=== PATIENT | male | born 2000 | race African-American/Black ===

== ENCOUNTER 2019-10-16 14:46 | Emergency (ER) | payer MEDICAID ==
[~2019-10-16] VITALS: Ht 182.9 cm; Wt 68.0 kg
[2019-10-16] MEDS ORDERED: LEVETIRACETAM 1000MG/100ML 100 ML IV ONE (15:30)
[2019-10-16 15:57] LABS: HEMATOCRIT. 42.4 % (42.0-52.0); HEMOGLOBIN. 14.1 g/dL (14.0-18.0); MEAN CORPUSCULAR HEMOGLOBIN 27.1 pg (28.0-32.0); MEAN CORPUSCULAR VOLUME 81.4 fL (80.0-94.0); MEAN PLATELET VOLUME 9.6 fl (7.4-10.4); PLATELET 164 x1000/uL (130-400); RED BLOOD CELL COUNT 5.21 mill/uL (4.7-6.1)
[2019-10-16 16:03] LABS: CHLORIDE 104 mEq/L (98-107)
[2019-10-16 16:09] LABS: ETHANOL BLOOD < 10 mg/dL
[2019-10-16 16:13] LABS: PLATELET ESTIMATE NORMAL
[2019-10-16 17:59] LABS: CLARITY URINE CLEAR (CLEAR); COLOR URINE YELLOW (YELLOW); KETONES URINE 1+ (NEGATIVE); LEUKOCYTE ESTERASE URINE NEGATIVE (NEGATIVE); NITRITE URINE NEGATIVE (NEGATIVE); OCCULT BLOOD URINE NEGATIVE (NEGATIVE); PH URINE 6.5 (4.5-8.0); PROTEIN URINE 1+ (NEGATIVE); SPECIFIC GRAVITY URINE 1.023 (1.005-1.030); UROBILINOGEN URINE 0.2 E.U./dL (0.2-1.0)
[2019-10-16 18:11] LABS: *AMPHETAMINES SCREEN URINE NEGATIVE (NEGATIVE); *BARBITURATES SCREEN URINE NEGATIVE (NEGATIVE); *BENZODIAZEPINES SCREEN URINE NEGATIVE (NEGATIVE); *COCAINE SCREEN URINE NEGATIVE (NEGATIVE); METHADONE URINE SCREEN NEGATIVE (NEGATIVE); OPIATES URINE SCREEN NEGATIVE (NEGATIVE)
[2019-10-16 18:12] LABS: CANNABINOID URINE SCREEN NEGATIVE (NEGATIVE); PHENCYCLIDINE URINE SCREEN NEGATIVE (NEGATIVE)
[2019-10-16 21:33] VITALS: BP 137/76
== END 2019-10-16 21:35 | disposition left against medical advice (07) ==
LOC: ER 15:02 → EDBEDREQ 20:56 → EDBEDREQTM 20:56 → ER 21:35 → CANBEDREQ 10-17 00:35
DX: G93.40 Encephalopathy, unspecified (principal); G40.909 Epilepsy, unspecified, not intractable, without status epilepticus; J06.9 Acute upper respiratory infection, unspecified; F84.0 Autistic disorder; G80.9 Cerebral palsy, unspecified
CPT/HCPCS: 36415; 80053; 80305; 80320; 81003; 85025; 96365; 96366; 99283; J1953; Z7610; G0480